=== PATIENT | female | born 1945 | race Caucasian/White ===

== ENCOUNTER 2016-07-13 10:52 | Inpatient (IN) | payer MEDICARE, BC ==
--- NOTE | ~2016-07-13 | EKG ---
PATIENT: MARLI LOWE UNIT #: [id number] Ventricular Rate: 92 BPM Atrial Rate: 92 BPM P-R Interval: 168 ms QRS Duration: 80 ms Q-T Interval: 332 ms QTC Calculation(Bezet): 410 ms P [place]: 50 degrees Calculated R [place]: 71 degrees Calculated T [place]: 49 degrees Diagnosis Line: Normal sinus rhythm Diagnosis Line: Normal ECG Diagnosis Line: When compared with ECG of 16-JUL-2016 06:00, Diagnosis Line: No significant change was found Diagnosis Line: Confirmed by BRENDA LANE MD ([id number]) on Diagnosis Line: 07/24/2016 9:48:05 AM INTERPRETING MILLER ANDERSON
--- NOTE | ~2016-07-13 | CR63 ---
[facility] A Service of [facility] & [facility] RADIOLOGY TEXT RESULTS PATIENT: MARLI LOWE LOCATION: [facility] 46- : 43 UNIT #: [id number] AGE: [address]: Ezra Mckenzie MD SEX: F ORDER DR: [id number] [facility] [address] [place], [place] [address] [id number] I MR#: [id number] Acc #: [id number] NAME: MARLI LOWE. : 1945 SEX: F STUDY DATE/TIME: 07/22/2016 9:51 UNIT: [facility] ROOM: [facility] STUDY DESCRIPTION: CR Chest 2 View Attending Physician: Ezra Mckenzie M.D. Ordering Physician: Ezra Mckenzie M.D. Primary Care Physician: Jasper Andrew M.D. MEDICAL IMAGING REPORT This report is preliminary unless electronic signature is present EXAM Two view chest x-ray HISTORY Shortness of breath accompanied by abdominal pain for the past week. TECHNIQUE Two views of the chest were obtained compared with 07/13/2016 FINDINGS Mild cardiomegaly is again seen and unchanged. No progressive mediastinal widening is seen since the previous examination. Both lungs are clear with normal vascular markings. No pleural fluid is seen. IMPRESSION No active disease. No new infiltrates are seen since the previous exam. Dictated by... Ezra Kasper M.D. THIS IS AN ELECTRONICALLY VERIFIED REPORT Ezra Kasper M.D. at 07/22/2016 4:33 PM MARCOS/daniel TD: 07/22/2016 13:25 JOB #: [id number] MEDICAL IMAGING REPORT Page 1 of 1 COPY
--- NOTE | ~2016-07-13 | ST ---
Unit #: [id number] #: [id number] Patient: MARLI LOWE [id number] [address] [place], [place] [address] [id number] I MR#: [id number] NAME: MARLI LOWE : 1945 SEX: F STUDY DATE/TIME: 07/14/2016 UNIT: [facility] ROOM: 461 STUDY DESCRIPTION: Attending Physician: Ezra Mckenzie M.D. Primary Care Physician: Jasper Andrew M.D. CARDIOLOGY REPORT EXAM Dobutamine Cardiolite Stress Test. FINDINGS Baseline EKG shows normal sinus rhythm with a rate of 63 beats per minute, otherwise normal. PROCEDURE Dobutamine was infused at a rate of 10 mcg/kg/min up to 20 mg/kg/min with a total infusion of 6 mL. The patient had no complaints of chest pain but complained of palpitations. EKG during dobutamine found her to have no ST-T wave abnormalities, was noted for a rare premature ventricular complex. Maximum blood pressure response was 136/82 mmHg. At the end of recovery, blood pressure 113/67 mmHg. Please correlate these results with nuclear images. Dictated by... Familia Husani A.P.R.N. for Jodi Biggs TD: 07/14/2016 14:30 JOB #: [id number] CARDIOLOGY REPORT Page 1 of 1 X Familia Husain APRN CARDIOLOGY REPORT
--- NOTE | ~2016-07-13 | OR ---
Unit #: [id number] #: [id number] Patient: MARLI SHANE [id number] [address] [address] [id number] I MR#: [id number] NAME: MARLI SHANE ROOM: 461 Date of Procedure: 07/15/2016 Admission Date: 07/13/2016 Surgeon: Ezra Mckenzie M.D. : 1945 Attending Physician: Ezra Mckenzie M.D. Primary Care Physician: Jasper Andrew M.D. OPERATIVE REPORT PREOPERATIVE DIAGNOSIS Ascending colon cancer. POSTOPERATIVE DIAGNOSIS Ascending colon cancer. PROCEDURES PERFORMED Exploratory laparotomy, right hemicolectomy. PERFORMANCE ENGINEER Marleni. ANESTHESIA General endotracheal anesthesia. ESTIMATED BLOOD LOSS Less than 50 mL. INDICATIONS FOR PROCEDURE Ms. Shane is a 70-year-old female, who was complaining of some right upper quadrant abdominal pain and was noted to have iron deficiency anemia. On endoscopic evaluation, she was found to have a circumferential near obstructing colon cancer near the hepatic flexure. The lesion was biopsied and tattooed. DESCRIPTION OF PROCEDURE The patient was transported from her hospital room to the operating room, and after induction of general endotracheal anesthesia, she received IV antibiotics per SCIP protocol. Garrison catheter and orogastric tube were placed. SCDs were already in place and in preoperative hold, she had received Entereg. After being prepped and draped in usual sterile fashion, midline incision was made. We dissected down through the soft tissue and entered the abdomen through the linea alba. Once the incision had been opened and we entered the peritoneal cavity, I identified the mass in the distal ascending colon. The right colon was mobilized along the right colic gutter and the hepatic flexure was mobilized. The duodenum was identified and preserved. I then divided the terminal ilium using a LEDA stapler and then divided the proximal transverse colon with a LEDA stapler. The omentum was dissected off the colon and then the mesenteric drainage of the right colon was clamped, divided, and ligated. The specimen was sent to laboratory for permanent section. There was excellent hemostasis. A functional end-to-end [id number] stapled Unit #: [id number] #: [id number] Patient: MARLI SHANE anastomosis was performed. The open end was closed with a TA 60 stapler and all staple lines were oversewn with 3-0 silk inverting sutures. The mesenteric defect was closed with 3-0 silk suture. Sponges and needle counts were correct x3. There was good hemostasis. The bowel was placed back in the anatomic position and omentum was pulled over the anastomosis. Dictated by... Jodi Shanks/rosa TD: 07/16/2016 02:12 JOB #: [id number] OPERATIVE REPORT Page 1 of 1 X Ezra Mckenzie MD X PROCEDURE OPERATIVE NOTE
--- NOTE | ~2016-07-13 | A ---
[facility] Nutrition Therapy DATE: 07/23/16 Patient: MARLI LOWE Physician: STEROB Address: [address] [facility] [address] Room/Bed: [address] [place] [address], Zip: [place] [address] Admit Date: 07/13/16 Date of : 43 Height: 5 4 Weight: 200 91 NUTRITIONAL ASSESSMENT: REASON: LOS ASSESSMENT PT IS 70 Y.O. FEMALE ADMITTED FOR ABDOMINAL EPIGASTRIC PAIN, CATHERINE PMH: METASTATIC COLON CA, HTN, HLD, ASTHMA, KWAME, HYPOTHYROIDISM, HX OF CHOLY Anthropometrics: 5'5", WT: 200# (91 KG), BMI: 33.3 Labs: GLU: 121, NA+:133, CA+:8.1 Meds: FERROUS GLUCONATE, NACL, H-CHLOR 12, ZOFRAN I/O & Bowel function: 1840/1305, 4 BMs NOTED Skin Integrity: INCISIONAL WOUND NOTED EDEMA: BLE TRACE EDEMA; ABD GENERAL EDEMA Assessment: CHART REVIEWED AND EVENTS NOTED. PT SEEN FOR LENGTH OF STAY ASSESSMENT (10 DAYS). PT REPORTS GOOD PO INTAKE AND APPETITE, NO C/O N/V/D. PT REPORTS (R) UPPER QUADRANT PAIN A FEW DAYS AGO. OF NOTE, PT IS S/P (R) HEMICOLECTOMY. PT DENIES ANY RECENT WEIGHT LOSS. RD ENCOURAGED ADEQUATE PROTEIN AND VITAMINS/MINERALS FOR WOUND HEALING WELL ADDING HEALTHY CHOICES TO DAILY MEAL PATTERN, PT AGREED. PT REPORTED NO DIET QUESTIONS AT THIS TIME. RD TO REMAIN AVAILABLE. Dx: INCREASED PROTEIN NEEDS R/T WOUND AEB INCISIONAL WOUND NOTED. Intervention: 1. REGULAR DIET Monitoring, Evaluation and Goals: 1. ORAL INTAKE; CONSUME >50% OF MEALS W/NO C/O N/V/D 2. WEIGHTS; PROMOTE GRADUAL WEIGHT LOSS TOWARDS HEALTHY BMI 3. LABS; WNL 4. SKIN; PROMOTE SKIN HEALING 5. GI; PROMOTE REGULAR GI FUNCTION MONITOR: -PO INTAKE/APPETITE -WEIGHTS -LABS [facility] Nutrition Therapy DATE: 07/23/16 Patient: MARLI LOWE Physician: STEROB Address: [address] [facility] [address] Room/Bed: [address] [place] [address], Zip: [place] [address] Admit Date: 05/23/17 Date of : 43 Height: 5 4 Weight: 200 91 Recommendations: 1. RECOMMEND TO CHANGE CURRENT DIET ORDER TO HEALTHY HEART 2' HIGH BMI NOTED, PMH 2. ENCOURAGE PROTEIN SOURCES 3. CONSIDER ADDING MVI W/MINERAL DAILY TO PT'S CURRENT MEDICATION REGIMEN TO PROMOTE SKIN HEALING RD WILL F/U PER PROTOCOL PT IS MILDLY COMPROMISED Respectfully, INDERJIT CURTIS MS, RD, LD Food and Nutritional Services [facility] cc: client file
--- NOTE | ~2016-07-13 | CO ---
Unit #: [id number] #: [id number] Patient: MARLI SHANE [id number] [address] [place], [place] [address] [id number] I MR#: [id number] NAME: MARLI SHANE ROOM: 461 Age: 70 Sex: F Admission Date: 07/13/2016 : 1945 Attending Physician: Ezra Mckenzie M.D. Primary Care Physician: Jasper Andrew M.D. Consultation Date: 07/21/2016 CONSULTATION REPORT REASON FOR CONSULT Acute kidney injury. HISTORY OF PRESENT ILLNESS Ms. Shane is a very pleasant 70-year-old white female who underwent a right hemicolectomy for colon cancer on July 15 whom we were asked to see because of postop acute kidney injury. I do note that patient did receive a contrasted CT scan near the time of admission, but this does not look to be playing a role in her acute kidney injury today on the 21 of July. She also received some postop Toradol, but again, that was several days ago, and I do not believe that was playing a role in her acute kidney injury. I do note that her creatinine started to rise shortly after her Garrison catheter was removed. She has also had some postop hypotension with several blood pressure readings over the last few days in the 90s while on Avapro. She reports feeling poorly yesterday with poor appetite and some nausea. She has had some postop wound issues and her karlos removed, and she does have some dehiscence and packing. She is on Levaquin for that. Patient does have asthma and obstructive sleep apnea but denies any chest discomfort or shortness of breath. She reports urinating with no dysuria or gross hematuria. No headache or dizziness at this time. PAST MEDICAL HISTORY 1. Hypertension. 2. Hyperlipidemia. 3. Asthma. 4. Obstructive sleep apnea. 5. Hypothyroidism. 6. Obesity. PAST SURGICAL HISTORY 1. Tonsillectomy. 2. Cholecystectomy. 3. Hysterectomy. 4. Left knee replacement. 5. Right hemicolectomy. CURRENT MEDICATIONS 1. Dulera inhaler. 2. Primidone 100 mg at bedtime. 3. Singulair 10 mg daily. 4. Avapro 300 mg daily. 5. Lovenox 40 mg subcutaneous daily. 6. Lasix 10 mg IV every morning was stopped. 7. Levaquin 500 mg IV daily. Unit #: [id number] #: [id number] Patient: MALRI SHANE 8. P.r.n.s, mostly pain medicine. ALLERGIES No known drug allergies but does have a shellfish issue. FAMILY HISTORY Congestive heart failure and coronary artery disease but no family history of kidney disease or dialysis. SOCIAL HISTORY Patient is . She is a lifelong nonsmoker. No alcohol or drug abuse. REVIEW OF SYSTEMS A complete 12-point review of systems was completed with the above findings. In addition, she has had some low-grade fevers but no chills, no nosebleed, sore throat, or earache, no chest pain or palpitations, no cough or hemoptysis, and no hematemesis. She has had some loose stools that are nonbloody. No gross hematuria, no swelling issues, no rashes or pruritus, no flank pain, no night sweats or hot flashes, no intolerance to heat or cold, no gross bleeding issues, no significant weight changes preadmission, and no anxiety or depression. Unless otherwise indicated, the review of systems was negative. PHYSICAL EXAMINATION VITAL SIGNS: T-max was 100, pulse 86, respiratory rate 18, and blood pressure 151/97. I do see a low blood pressure yesterday at 98/50 and 98/68. I/Os: Urine output was recorded at 650 mL. GENERAL: This is a pleasant 70-year-old female sitting in a chair who is alert, answers questions appropriately, and is in no acute distress. HEENT: Head is atraumatic and normocephalic. Eyes show pale conjunctivae but no scleral icterus. No nasal drainage or nosebleed. Oropharynx is slightly dry. No thrush. He does have a narrow posterior pharyngeal airway. NECK: Thick with no JVD. HEART: Regular rate and rhythm with no significant murmur, gallop, or rub appreciated. LUNGS: Slightly diminished with breath sounds, but there is no wheezing or rhonchi. Breathing is nonlabored. ABDOMEN: Obese and soft postop with wound dressed. EXTREMITIES: No lower extremity clubbing, cyanosis, or pitting edema. SKIN: Dry without rashes. MUSCULOSKELETAL: No CVA tenderness to palpation. No joint effusions noted. NEUROLOGIC: Cranial nerves are grossly intact with no gross motor deficits. LYMPHATICS: No neck cervical lymphadenopathy. PSYCHIATRIC: Mood and affect appear normal. DIAGNOSTIC STUDIES LABORATORY: Sodium today 131, potassium 4, chloride 104, and bicarb 20 for an anion gap of 7, glucose 113, BUN 23, creatinine up to 2, and magnesium 1.7. CBC with white count 14, hemoglobin 7.2, and platelet count 316,000. Urine culture from the was negative. Creatinine yesterday was 1.1 and prior to that on the was 0.7. Urinalysis on the was nitrite positive with white blood cells and red blood cells, but there were moderate squamous cells at that time. Unit #: [id number] #: [id number] Patient: MARLI SHANE IMAGING: Chest x-ray from the showed some atelectasis but no pleural effusions. CT of the abdomen and pelvis with contrast on the did show bilateral cysts, one in each kidney. No hydronephrosis. ASSESSMENT AND PLAN 1. Acute kidney injury. Again, creatinine looks to have started to rise after July 18 when it went from 0.7, then to 1.1, and now up to 2. Again, she did receive some contrast on the day of admission and did receive some postop Toradol, but these do not appear to be playing a role in her acute kidney injury as the timing is not consistent. Her creatinine again did seem to rise steadily after her catheter was removed on the , so we do need to rule out obstruction and urinary retention with a bladder scan. We will replace Garrison if needed. She also could be prerenal with her Avapro on board with low blood pressure. We will stop her Avapro and gently hydrate. We will start her on some sodium bicarbonate and monitor kidney function daily. 2. Metabolic acidosis, nonanion-gap in nature. This may be related to her loose stools, and I will add some sodium bicarbonate supplementation. 3. Hypotension. We will hold her Avapro and gently hydrate. 4. Hyponatremia. This is likely related to her renal insufficiency, and we will use normal saline as replacement fluid. 5. Anemia. This is postoperative in nature, and she may need a transfusion if she continues to drop. 6. Obstructive sleep apnea with asthma, on CPAP. 7. History of colon cancer, status post resection, now with wound infection, on Levaquin, being followed by Surgery. I would like to thank Dr. Mckenzie for this consult and the opportunity to participate in evaluation and care of Ms. Shane. Dictated by... Ned Stephens Jr., M.D. SJK/angelic TD: 07/21/2016 14:54 JOB #: [id number] CONSULTATION REPORT Page 1 of 1 X Ned Stephens MD X CONSULTATION REPORT
--- NOTE | ~2016-07-13 | TH ---
Unit #: [id number] #: [id number] Patient: MARLI LOWE [id number] [address] [address] [id number] I MR#: [id number] NAME: MARLI LOWE. : 1945 SEX: F STUDY DATE/TIME: 07/14/2016 UNIT: [facility] ROOM: 461 STUDY DESCRIPTION: Dobutamine stress - Nuclear Attending Physician: Ezra Mckenzie M.D. Primary Care Physician: Jasper Andrew M.D. CARDIOLOGY REPORT PROCEDURE PERFORMED Dobutamine Cardiolite stress test - Nuclear portion. PROCEDURE Using technetium 99m-labeled Cardiolite, rest and stress SPECT images were obtained. Multiple SPECT images were obtained in various views, including horizontal and vertical long axis and short axis views of the left ventricle. Images were obtained by gated SPECT method. The patient was administered 10.5 mCi of Cardiolite at rest. The patient was administered 31.7 mCi of Cardiolite at peak dobutamine infusion. On the stress images, there is normal perfusion noted. The rest images show normal perfusion. Comparing the rest and stress images, there is no stress-induced ischemia noted. The left ventricular ejection fraction is calculated to be 78%. There is no focal wall motion abnormality seen. CONCLUSION 1. No stress-induced ischemia noted. 2. The left ventricular ejection fraction is calculated to be 78%. 3. There is no focal wall motion abnormality seen. 4. Normal dobutamine Cardiolite stress test. 5. Technically limited study due to patient's body habitus. Clinical correlation is requested. Dictated by... Jodi Biggs TD: 07/14/2016 15:02 JOB #: [id number] Unit #: [id number] #: [id number] Patient: MARLI LOWE CARDIOLOGY REPORT Page 1 of 1 X Maxine Lock MD <ELECTRONICALLY SIGNED> 09/11/16 1426 CARDIOLOGY REPORT
--- NOTE | ~2016-07-13 | CT2 ---
[facility] A Service of [facility] & [facility] RADIOLOGY TEXT RESULTS PATIENT: MARLI LOWE LOCATION: [facility] : 43 UNIT #: [id number] AGE: [address]: Ezra Mckenzie MD SEX: F ORDER DR: [id number] [facility] [address] [facility]. [place], [place] [address] [id number] I MR#: [id number] Acc #: [id number] NAME: MARLI LOWE. : 1945 SEX: F STUDY DATE/TIME: 07/13/2016 19:14 [facility] ROOM: STUDY DESCRIPTION: CT Abd and Pelv W Cont Attending Physician: Ezra Mckenzie M.D. Ordering Physician: Ezra Mckenzie M.D. Primary Care Physician: Jasper Andrew M.D. MEDICAL IMAGING REPORT This report is preliminary unless electronic signature is present EXAM CT abdomen and pelvis. INDICATION Epigastric abdominal pain for 1 month. New diagnosis of colon cancer. TECHNIQUE CT of abdomen and pelvis with p.o. and IV contrast. Coronal and sagittal reconstructions were obtained. This CT exam was performed with one or more of the following radiation dose reduction techniques: automatic exposure control, adjustment of mA and/or kV according to patient size, and iterative reconstruction. COMPARISON None available. FINDINGS ABDOMEN: There is minimal linear scarring or atelectasis in both lung bases. The liver, pancreas, spleen, and adrenal glands are within normal limits. There is a benign cyst in the superior pole left kidney measuring up to 7.4 cm. Small low-attenuation lesion in the mid-right kidney measures 1.5 cm is also likely a cyst. No hydronephrosis. The bowel is not dilated. No enlarged retroperitoneal or mesenteric lymph nodes. The appendix is normal. There is moderate sigmoid colon diverticulosis. No diverticulitis. Patient has reported history of a primary colonic malignancy, however, no discrete evidence of a mass is seen on the CT scan. There is a possible lesion in the ascending colon near the hepatic flexure measuring up to 3.6 cm in length. Please confirm with colonoscopy history. The bowel wall measures approximately 1 cm in thickness in this area. There is minimal stranding in the pericolonic fat, however, no pathologically enlarged lymph nodes. [facility] A Service of [facility] RADIOLOGY TEXT RESULTS PATIENT: MARLI LOWE LOCATION: [facility] [address]-5 : 43 UNIT #: [id number] AGE: [address]: Ezra Mckenzie MD SEX: F ORDER DR: There is a small umbilical hernia. PELVIS: The bladder is decompressed. The uterus and ovaries are presumed surgically absent. There is pelvic floor insufficiency with descent of the middle and posterior pelvic floor compartments below the pubococcygeal line. There is a prominent peritoneocele. No acute osseous abnormalities. IMPRESSION 1. Short segment of mild wall thickening in the ascending colon near the hepatic flexure. The patient has reported history of primary colon neoplasm. This lesion likely represents the patient's known malignancy. Please confirm with endoscopy reports. 2. No evidence of metastatic disease in the abdomen or pelvis. 3. Left-sided colonic diverticulosis. Dictated by... Fab Trinidad M.D. THIS IS AN ELECTRONICALLY VERIFIED REPORT Fab Trinidad M.D. at 07/14/2016 2:21 AM Ignacia TD: 07/14/2016 00:34 JOB #: [id number] MEDICAL IMAGING REPORT Page 1 of 1 COPY
--- NOTE | ~2016-07-13 | EKG ---
PATIENT: MARLI LOWE UNIT #: [id number] Ventricular Rate: 60 BPM Atrial Rate: 60 BPM P-R Interval: 182 ms QRS Duration: 80 ms Q-T Interval: 438 ms QTC Calculation(Bezet): 438 ms P [place]: 56 degrees Calculated R [place]: 70 degrees Calculated T [place]: 72 degrees Diagnosis Line: Normal sinus rhythm Diagnosis Line: Normal ECG Diagnosis Line: No previous ECGs available Diagnosis Line: Confirmed by MATTHEW OBRIEN MD ([id number]) on Diagnosis Line: 07/15/2016 1:13:23 PM INTERPRETING MD: KENJI
--- NOTE | ~2016-07-13 | OR ---
Unit #: [id number] #: [id number] Patient: MARLI SHANE [id number] [facility] [address] [facility]. [place], [place] [address] [id number] I MR#: [id number] NAME: MARLI SHANE ROOM: Date of Procedure: 07/13/2016 Admission Date: 07/13/2016 Surgeon: Ezra Mckenzie M.D. : 1945 Attending Physician: Ezra Mckenzie M.D. Primary Care Physician: Jasper Andrew M.D. OPERATIVE REPORT PRIMARY CARE PHYSICIAN Jasper Andrew M.D. PREOPERATIVE DIAGNOSES Abdominal pain and anemia. POSTOPERATIVE DIAGNOSES Normal upper endoscopy, sigmoid diverticulosis, near obstructing mass at the hepatic flexure consistent with malignancy. PROCEDURES PERFORMED Esophagogastroduodenoscopy to third portion of the duodenum and colonoscopy to the hepatic flexure with biopsy x2. ANESTHESIA Monitored anesthesia. INDICATIONS FOR PROCEDURE Ms. Shane is a 70-year-old female with a family history of colon cancer and multiple medical problems. She has been complaining of some abdominal pain in the epigastrium and right upper quadrant. It is exacerbated by eating and she has also been complaining of more difficulty moving her bowels. Physical examination was unremarkable. DESCRIPTION OF PROCEDURE The patient was admitted to [facility], positively identified, and transported to the endoscopy unit and after appropriate monitoring and positioning, a bite block was placed. She was appropriately positioned and sedated. Endoscope was passed through the oral cavity into the esophagus. Under direct vision, we passed through the esophagus into the stomach, insufflated the stomach, and passed through the pylorus down to the second and third portions of the duodenum. The entire upper GI tract was evaluated and was found to have no significant abnormalities. The scope was normal to examination. After completion of the upper scope, the patient was repositioned. On rectal examination, there was no local anorectal pathology. Digital examination was unremarkable. The scope was passed through the colon to the hepatic flexure, where at the hepatic flexure, she was found to have a mass that was near obstructing. Biopsy x2 was taken. It was consistent with malignancy. The area was tattooed for identification of surgery. On antegrade and retrograde visualization, diverticulosis was identified in the sigmoid colon, but there was no evidence of diverticulitis or any Unit #: [id number] #: [id number] Patient: MARLI SHANE recent bleeding. In the rectal vault, there was no internal hemorrhoidal disease. The patient tolerated the procedure well and transported to Recovery in stable condition. Findings were discussed with the patient and her family. She will be admitted to the hospital for further evaluation and surgical treatment of her disease as appropriate. Dictated by... Jodi Shanks/rosa TD: 07/14/2016 00:08 JOB #: [id number] OPERATIVE REPORT Page 1 of 1 X Ezra Mckenzie MD X PROCEDURE OPERATIVE NOTE
--- NOTE | ~2016-07-13 | EKG ---
PATIENT: MARLI LOWE UNIT #: [id number] Ventricular Rate: 65 BPM Atrial Rate: 65 BPM P-R Interval: 174 ms QRS Duration: 88 ms Q-T Interval: 412 ms QTC Calculation(Bezet): 428 ms P [place]: 41 degrees Calculated R [place]: 46 degrees Calculated T [place]: 50 degrees Diagnosis Line: Normal sinus rhythm Diagnosis Line: Normal ECG Diagnosis Line: When compared with ECG of 13-JUL-2016 17:01, Diagnosis Line: (unconfirmed) Diagnosis Line: No significant change was found Diagnosis Line: Confirmed by HUNTER MARIN MD ([id number]) on 07/15/2016 Diagnosis Line: 6:01:57 PM INTERPRETING MD: TOMAS LUI
--- NOTE | ~2016-07-13 | DS ---
Unit #: [id number] #: [id number] Patient: MARLI LOWE [id number] [address] [address] [id number] I MR#: [id number] NAME: MARLI LOWE ROOM: 46 Age: 70 Sex: F Admission Date: 07/13/2016 : 1945 Discharge Date: 07/26/2016 Attending Physician: Ezra Mckenzie M.D. Primary Care Physician: Jasper Andrew M.D. DISCHARGE SUMMARY REVISED REPORT ADMITTING PHYSICIAN Dr. Ezra Mckenzie. CONSULTATIONS 1. Dr. Karl Gallegos. 2. Cardiology with Dr. Lee. 3. Dr. Renzo Gracia. 4. Nephrology with Dr. Ned Stephens. PROCEDURES PERFORMED 1. On July 13, 2016, she underwent colonoscopy. 2. On July 15, 2016, she underwent right hemicolectomy. ADMITTING DIAGNOSES 1. Abdominal pain. 2. Anemia. DISCHARGE DIAGNOSIS She had a colon cancer at the hepatic flexure. SECONDARY DIAGNOSES 1. Sleep apnea. 2. Asthma. 3. Coronary artery disease. 4. Acute kidney injury. BRIEF HOSPITAL COURSE This is a 70-year-old lady, who was admitted for workup of abdominal pain and anemia. She was found to have a near obstructing colon cancer at the hepatic flexure. She underwent cardiac clearance and then underwent a right hemicolectomy. Postoperatively, she had issues with acute kidney injury, so nephrology was consulted. She did not require any dialysis. Workup included evaluation for metabolic acidosis and hyponatremia. Her kidneys ultimately responded. She was also given iron transfusions during her hospitalization for her anemia. She then developed a wound infection and part of her wound was opened up and dressing changes were begun. She was overall fairly weak and needed rehab. DISPOSITION Discharge to Rehab. Unit #: [id number] #: [id number] Patient: MARLI LOWE DISCHARGE INSTRUCTIONS Prior to discharge, she was tolerating a regular diet. She was having good GI function. She is to continue her wet-to-dry dressing changes every eight hours. She is to follow up with Dr. Mcknezie in 10-14 days and followup with Dr. Gracia in two to three weeks. We have also recommended to discontinue her remaining karlos on July 29. Dictated by... Raul Alicea III, M.D. VCL/ch TD: 07/26/2016 10:14 JOB #: [id number] DISCHARGE SUMMARY Page 1 of 1 X Raul Alicea III, MD X DISCHARGE SUMMARY
--- NOTE | ~2016-07-13 | EKG ---
PATIENT: MARLI LOWE UNIT #: [id number] Ventricular Rate: 73 BPM Atrial Rate: 73 BPM P-R Interval: 168 ms QRS Duration: 80 ms Q-T Interval: 396 ms QTC Calculation(Bezet): 436 ms P [place]: 53 degrees Calculated R [place]: 64 degrees Calculated T [place]: 57 degrees Diagnosis Line: Normal sinus rhythm Diagnosis Line: Normal ECG Diagnosis Line: When compared with ECG of 14-JUL-2016 14:46, Diagnosis Line: No significant change was found Diagnosis Line: Confirmed by BRENDA LANE MD ([id number]) on Diagnosis Line: 07/20/2016 5:13:07 PM INTERPRETING : JUSTIN
--- NOTE | ~2016-07-13 | CR63 ---
[facility] A Service of [facility] RADIOLOGY TEXT RESULTS PATIENT: MARLI LOWE LOCATION: [facility] : 43 UNIT #: [id number] AGE: [address]: Ezra Mckenzie MD SEX: F ORDER DR: [id number] [facility] [address] [facility] [place], [place] [address] [id number] I MR#: [id number] Acc #: [id number] NAME: MARLI LOWE. : 1945 SEX: F STUDY DATE/TIME: 07/13/2016 19:28 UNIT: [id number] ROOM: STUDY DESCRIPTION: CR Chest 2 View Attending Physician: Ezra Mckenzie M.D. Ordering Physician: Ezra Mckenzie M.D. Primary Care Physician: Jasper Andrew M.D. MEDICAL IMAGING REPORT This report is preliminary unless electronic signature is present EXAM 2 views chest HISTORY Postop, endo cancer screening today, colon cancer today, gallbladder removed. FINDINGS AP and lateral radiographs of the chest are presented. Study is significantly limited by the patient's large body habitus, radiographic technique, and patient positioning. There is mild cardiac enlargement. There are patchy and linear densities in the left lower lung zone with partial obscuration of the left heart border suggesting inferior lingular segment location. These may represent a combination of atelectasis and mild pneumonitis. There is no dense airspace disease. No pleural effusion or pneumothorax. No suspicious nodule. Healed granulomatous disease. The bony structures show degenerative changes in spine but no acute-appearing abnormality. Dictated by... López Mathew M.D. THIS IS AN ELECTRONICALLY VERIFIED REPORT López Mathew M.D. at 07/14/2016 10:27 PM LIZZETH/amadou TD: 07/14/2016 01:34 JOB #: [id number] MEDICAL IMAGING REPORT Page 1 of 1 COPY
--- NOTE | ~2016-07-13 | CO ---
Unit #: [id number] #: [id number] Patient: MARLI LOWE [id number] [address] [place], [place] [address] [id number] I MR#: [id number] NAME: MARLI LOWE ROOM: 461 Age: 70 Sex: F Admission Date: 07/13/2016 : 1945 Attending Physician: Ezra Mckenzie M.D. Primary Care Physician: Jasper Andrew M.D. Consultation Date: 07/20/2016 CONSULTATION REPORT REASON FOR EVAL Colon cancer; please evaluate. HISTORY OF PRESENT ILLNESS A 70-year-old lady who has a history of father dying of metastatic colon cancer. Had colonoscopy 10 years ago, followed by about 5 years ago. Now presented with a lesion. It was resected, and it appears to be a T3, N0, Mx, stage IIA colon cancer. We were requested to evaluate. PAST MEDICAL HISTORY Her past history is negative for other cancers. Positive for sleep apnea and asthma. ALLERGIES No known allergies. CHRONIC MEDICATIONS Primidone, Singulair, potassium, Lasix, Lipitor, Zoloft, Avapro, Protonix, multivitamin. FAMILY HISTORY Positive for colon cancer in her father who from the colon cancer, metastatic, but she does not know of any other colon cancer in the family. SOCIAL HISTORY She is a reformed smoker. No alcohol usage. Currently retired. Has a supportive son. REVIEW OF SYSTEMS Shortness of breath on lying down. Periodic shortness of breath on exertion. Otherwise, 8 to 10 systems were within normal limits. PHYSICAL EXAM GENERAL: Central obesity. LYMPHATICS: No palpable nodes. SKIN: Moderate pallor. LUNGS: Crackles. Mild wheeze. CARDIOVASCULAR: Distant S1, S2. ABDOMEN: Evidence of recent surgery. MANAGING JEWELER: Grossly intact. PELVIC EXAM: Not performed. BREAST EXAM: Not performed. DIAGNOSTIC STUDIES Unit #: [id number] #: [id number] Patient: MARLI LOWE LABORATORY: Chemistries - Glucose 103, BUN 9, creatinine 1.1, sodium 133, potassium 3.6, chloride 105, CO2 21, calcium 8.1. CEA of 1.2. Ferritin is 5, saturation is 2% with a serum iron of 10. Hemoglobin 8.3, hematocrit 28, MCV 68.4, white count 15.5, platelets 290,000. IMAGING: CT scan of the abdomen and pelvis done on July 13 showed no evidence of metastatic disease. Short segment of mild wall thickening of ascending colon, and this was prior to the surgery. There was evidence of left-sided diverticulosis. Chest x-ray - No evidence of metastatic disease. IMPRESSION At this point the pathology was brought up, reviewed, and the results were discussed with the patient. Moderately differentiated, 5.3 cm, low-grade adenocarcinoma. All the margins were clear. Twenty-one lymph nodes were negative, so it is basically a T3, N0, Mx stage IIA colon cancer. Recuperating well. PLAN At this point I had a long discussion with her regarding adjuvant chemotherapy in her case is not indicated with stage IIA disease as the benefit is there, but it is very small comparing the toxicity of the drug trial. Only clinical trials are allowed for IIA disease. Also, she has fairly severe iron deficiency anemia, and we will try ferrous sulfate orally for a month or 2, see if she absorbs enough iron by checking a ferritin level as an outpatient. In case there is difficulty in absorbing iron, we will treat her with intravenous at that point. Also, with stage IIA, the NCCN guidelines suggest CT scan of the abdomen and pelvis once a year for 3 years. She already had the CT scan this year. She will not qualify for a PET scan but will check with Medicare allowance and, as she has severe fear of metastatic colon cancer, if Medicare allows, will proceed with a PET scan as a baseline and schedule outpatient followup. Dictated by... Jodi Kim/herb TD: 07/21/2016 12:37 JOB #: [id number] CONSULTATION REPORT Page 1 of 1 X Renzo Gracia MD X CONSULTATION REPORT
--- NOTE | ~2016-07-13 | CO ---
Unit #: [id number] #: [id number] Patient: MARLI LOWE [id number] [address] [place], [place] [address] [id number] I MR#: [id number] NAME: MARLI LOWE. ROOM: 461 Age: 70 Sex: F Admission Date: 07/13/2016 : 1945 Attending Physician: Ezra Mckenzie M.D. Primary Care Physician: Jasper Andrew M.D. Consultation Date: 07/14/2016 CONSULTATION REPORT REASON FOR CONSULTATION Preoperative evaluation prior to surgery for suspected colon cancer. HISTORY OF PRESENT ILLNESS This 70-year-old female with a history of asthma and sleep apnea, compliant with CPAP, had abdominal discomfort. Despite treatment for diverticulitis it continued. Evaluation included endoscopy on 07/13/2016 which revealed evidence of a colon cancer. Pathology is pending. She is undergoing cardiac workup for anticipated surgery tomorrow. She states her pulmonary status is stable. No wheezing, sputum production, chest congestion. She uses Breo at home and that controls her symptoms. She uses CPAP nightly without difficulty. PAST MEDICAL HISTORY Remarkable for: 1. Asthma. 2. Obstructive sleep apnea. 3. Stress test in the past that was negative. HOME MEDICATIONS 1. Breo. 2. Albuterol as needed. 3. CPAP. MEDICATIONS IN HOSPITAL Include: 1. Protonix. 2. Multivitamins. 3. Primidone. 4. Singulair. 5. Lasix. 6. Potassium. 7. Lipitor. 8. Zoloft. 9. Avapro. ALLERGIES No known medical allergies. SOCIAL HISTORY She is a reformed tobacco user. FAMILY HISTORY Colon cancer. Unit #: [id number] #: [id number] Patient: MARLI LOWE REVIEW OF SYSTEMS Fairly unremarkable. She denies fever, chills, weight loss, abdominal pain, melena, hematochezia, hematuria, dysuria, focal weakness, paresthesias. She is very independent. She lives alone. Walks without difficulty. Further review of systems negative. PHYSICAL EXAMINATION VITAL SIGNS: I do not see a temperature but blood pressure was 160/78, pulse is 70, respiratory rate 18 and unlabored, BMI 48. GENERAL: Reveals a pleasant lady, walking around the room without difficulty. HEENT: Pupils are equal, round, and reactive to light. Sclerae anicteric. Head atraumatic. Mucous membranes moist. NECK: Supple. No supraclavicular or cervical adenopathy appreciated. She does have some full supraclavicular fossas consistent with pulmonary hyperinflation. I do not appreciate any adenopathy. LUNGS: Clear. No wheeze, stridor or consolidation. No accessory muscle use. HEART: Regular rate and rhythm. No pathologic murmur, rub or gallop. ABDOMEN: Obese, soft, nontender. EXTREMITIES: No clubbing, cyanosis or edema. No calf tenderness. SCD stockings are in place. NEUROLOGIC: No focal muscle or sensory deficits noted. DIAGNOSTIC STUDIES LABORATORY: BUN 9, creatinine 0.7. Iron studies are low. Hemoglobin 8.6, white blood cell count 5.3, platelet count 277. IMAGING: Chest x-ray old granulomatous disease right hilum. There is a small granuloma right upper lobe. Possibly some mild atelectasis in her lingula. CT scan of the abdomen, lower lung cuts were reviewed. Confirms the minimal atelectasis of her lingula. No pneumonia, no tumor, no fibrosis. Lower lung cuts fairly unremarkable. CARDIOVASCULAR: She is undergoing evaluation cardiac-bernstein with those tests pending. IMPRESSION 1. Likely colon cancer, tentative surgery tomorrow. 2. Asthma which is stable. 3. Obstructive sleep apnea, compliant. 4. Remote history of abnormal PFTs but with stability and, quite frankly improvement on Breo, doubt any undiscovered lung disease. PLAN 1. Continue treatment for asthma. 2. Continue CPAP. 3. I have asked her to ask her family to bring in her CPAP to use at night with sleep and postoperatively. 4. We have discussed the risk of pulmonary complications given her obesity including hypoxemia. We also discussed how sleep apnea can be worsened with pain medications, anesthesia, etc. 5. From a pulmonary point of view, it is okay to proceed with surgery. Thank you very much for allowing me to participate in the care of Ms. Unit #: [id number] #: [id number] Patient: MARLI LOWE. Dictated by... Ramsey Gallegso M.D. COLT/niurka TD: 07/14/2016 16:23 JOB #: [id number] CONSULTATION REPORT Page 1 of 1 X Ramsey Gallegos MD CONSULTATION REPORT
--- NOTE | ~2016-07-13 | HP ---
Unit #: [id number] #: [id number] Patient: MARLI LOWE [id number] [address] [place], [place] [address] [id number] I MR#: [id number] NAME: MARLI LOWE. ROOM: 461 Age: 70 Sex: F Admission Date: 07/13/2016 : 1945 Attending Physician: Ezra Mckenzie M.D. Primary Care Physician: Jasper Andrew M.D. HISTORY AND PHYSICAL HISTORY OF PRESENT ILLNESS This is a 70-year-old white female who is known to Dr. Lo who has been treating her for hypertension and hyperlipidemia. She underwent a stress test in 2013 prior to knee surgery where there was no evidence of ischemia or infarction. Patient was admitted after EGD and colonoscopy for complaint of abdominal discomfort. She was found to have diverticulosis and hepatic flexure mass that was consistent with malignancy. She needs surgical repair, and Cardiology was consulted for evaluation. From a cardiac standpoint, the patient said she has had intermittent chest discomfort in the past but has not had it for quite some time. She is able to clean and vacuum her house without chest pain. She has some exertional dyspnea which she associates with asthma. She reports occasional lower extremity edema but no paroxysmal nocturnal dyspnea or orthopnea. PAST MEDICAL HISTORY 1. Lexiscan Cardiolite stress test on February 03, 2014, at [facility] which showed probable normal with no evidence of ischemia or infarction and ejection fraction of 61%. There was a moderate size, mild, fixed hypoperfusion in the anterior wall likely due to breast attenuation artifact. 2. Hypertension. 3. Hyperlipidemia. 4. Asthma. 5. Hiatal hernia. 6. Hypothyroidism. 7. Obesity. 8. Nonsmoker. 9. Obstructive sleep apnea, wears BiPAP. PAST SURGICAL HISTORY 1. Tonsillectomy. 2. Cholecystectomy. 3. Hysterectomy. 4. Left knee replacement. SOCIAL HISTORY The patient is . She has never smoked and denies illicit drug and alcohol use. FAMILY HISTORY Mother had congestive heart failure. She has a brother with stent placement. Unit #: [id number] #: [id number] Patient: MARLI LOWE ALLERGIES No known drug allergies. HOME MEDICATIONS 1. Breo Ellipta 1 inhalation daily. 2. ProAir HFA 1 inhalation p.r.n. 3. Primidone 100 mg at bedtime. 4. Singulair 10 mg daily. 5. Aspirin 81 mg daily. 6. "Octavite O.U." daily. 7. Furosemide 40 mg daily. 8. Potassium chloride 20 mEq daily. 9. Lipitor 40 mg at bedtime. 10. Zoloft 50 mg daily. 11. Irbesartan 300 mg daily. REVIEW OF SYSTEMS CONSTITUTIONAL: Negative for fever or chills. Has no weight gain or weight loss. HEENT: No headache, hearing or vision changes, or difficulty with swallowing. Negative for dizziness. CARDIOVASCULAR: Chest discomfort described in History of Present Illness. Denies palpitations. No paroxysmal nocturnal dyspnea or orthopnea. No syncope or presyncope. RESPIRATORY: Has dyspnea on exertion. Has occasional nonproductive cough. No hemoptysis. GASTROINTESTINAL: Reports abdominal discomfort. No nausea or vomiting. Denies hematochezia or melena. EXTREMITIES: Has occasional lower extremity edema. PHYSICAL EXAMINATION VITAL SIGNS: Blood pressure 147/57 and heart rate 60. GENERAL: This is a pleasant, 70-year-old, middle-aged white female who is in no acute respiratory distress. NEUROLOGIC: She is awake, alert, and oriented. There are no focal weaknesses. NECK: Trachea is midline. No thyromegaly or lymphadenopathy. No jugular venous distention. HEART: S1 and S2 heart sounds are normal. No murmurs, rubs, or clicks. Regular rate and rhythm. LUNGS: Diminished without rales, rhonchi, or wheezing. ABDOMEN: Soft with tenderness to palpation. No organomegaly. EXTREMITIES: Without leg edema. SKIN: Warm and dry. DIAGNOSTIC STUDIES LABORATORY: Glucose 98, BUN 6, creatinine 0.8, sodium 139, potassium 3.6, and magnesium 2. Cholesterol 137, triglycerides 119, LDL 66, and HDL 47. TSH 2.41. IMAGING: Chest x-ray shows mild cardiac enlargement with patchy and linear densities in the left lower lobe with partial obscuration of the left heart border suggesting inferior lingular segment location. May represent atelectasis or mild pneumonitis. CARDIOLOGY: EKG shows normal sinus rhythm, rate of 60 beats per minute, otherwise normal. Unit #: [id number] #: [id number] Patient: MARLI LOWE IMPRESSION 1. Hepatic flexure mass, questionable malignancy. 2. Hypertension. 3. Hyperlipidemia. 4. Normal Lexiscan Cardiolite stress test in 2013. 5. History of asthma. 6. Obesity. PLAN 1. Cardiology was consulted for preoperative evaluation. The patient has no current angina. There is no heart failure on examination. Blood pressure is normal with EKG within normal limits. 2. Will schedule the patient for Lexiscan Cardiolite stress test to rule out coronary artery disease. If normal, the patient is a low-risk candidate for hemicolectomy under general anesthesia. Thank you for allowing us to assist with this patient's care. Dictated by Familia Husain A.P.R.N. for Jodi Isidro/angelic TD: 07/14/2016 20:04 JOB #: [id number] HISTORY AND PHYSICAL Page 1 of 1 X Familia Husain APRN X HISTORY AND PHYSICAL
[~2016-07-13 10:52] MED LIST: ADVAIR 250-501 EACH IH; ALBUTEROL17 GM INH; ASPIR-TRIN325 MG PO; ASPIRIN EC81 M1 PO; BREO ELLIPTA 11 EACH INH; DORZOLAMIDE-TIM10 ML OU; FUROSEMIDE40 MG PO; Glucosamine PO; IRBESARTAN300 MG PO; K-DUR20 ME1 PO; LIPITOR PO; LIPITOR40 MG PO; MULTIVITAMIN PO; OCCUVITE OU; POTASSIUM CHLO20 ME1 PO; PRIMIDONE50 MG PO; PROAIR HFA8.5 GM INH; SERTRALINE HCL50 M1 PO; SINGULAIR PO
[2016-07-13 17:03] LABS: BASOPHIL% 0.8 % (0-2.5); EOSINOPHIL# 0.1 X10e3 (0-0.7); EOSINOPHIL% 2.2 % (0.0-7.0); HEMATOCRIT 29.8 % (35.0-45.0); LYMPHOCYTE# 1.3 X10e3 (1.0-3.5); LYMPHOCYTE% 22.3 % (17.0-45.0); MEAN CELL VOLUME 68.3 FL (83-96); MEAN CORPUSCULAR HEMOGLOBIN 20.7 PG (28-34); MEAN CORPUSCULAR HGB CONC 30.3 g/dL (30-36); MEAN PLATELET VOLUME 8.4 FL (6.5-11.5); MONOCYTE# 0.6 X10e3 (0-1.0); MONOCYTE% 10.6 % (3.0-12.0); NEUTROPHIL# 3.7 X10e3 (1.5-7.1); NEUTROPHIL% 64.1 % (40-75); PLATELET COUNT 293 X10e3 (140-420); RED BLOOD COUNT 4.36 X10e (3.90-5.30); RED CELL DISTRIBUTION WIDTH 17.3 % (11.0-15.5); WHITE BLOOD COUNT 5.8 X10e3 (4.0-10.5)
[2016-07-13 17:08] LABS: DIFF IND NO
[2016-07-13 17:37] LABS: BILIRUBIN,TOTAL 0.5 mg/dL (0.2-2.0); BUN/CREATININE RATIO 12.85; CALCIUM SERUM 9.3 mg/dL (8.4-10.2); CREATININE SERUM 0.7 mg/dL (0.6-1.4); GLOM FILT RATE Estimated 86.6 mL/min (>60); MAGNESIUM 2.1 mg/dL (1.6-3.0); PHOSPHOROUS 4.2 mg/dL (2.5-4.6); PREALBUMIN 17.7 mg/dL (17.0-42.0); PROTEIN TOTAL SERUM 7.2 g/dL (6.0-8.3)
[2016-07-13 19:14] LABS: CHOLESTEROL 137 mg/dL (0-200); HDL CHOLESTEROL 47 mg/dL (35-95); LDL CHOLESTEROL 66 mg/dL (-130); LDL/HDL RATIO 1 RATIO (0-4); TRIGLYCERIDES 119 mg/dL (10-160)
[2016-07-14 11:47] LABS: BASOPHIL% 0.8 % (0-2.5); EOSINOPHIL# 0.1 X10e3 (0-0.7); EOSINOPHIL% 2.2 % (0.0-7.0); HEMATOCRIT 28.6 % (35.0-45.0); HEMOGLOBIN 8.6 gm/dL (12.0-16.0); LYMPHOCYTE# 1.3 X10e3 (1.0-3.5); LYMPHOCYTE% 24.8 % (17.0-45.0); MEAN CELL VOLUME 69.1 FL (83-96); MEAN CORPUSCULAR HEMOGLOBIN 20.9 PG (28-34); MEAN CORPUSCULAR HGB CONC 30.2 g/dL (30-36); MEAN PLATELET VOLUME 8.5 FL (6.5-11.5); MONOCYTE# 0.6 X10e3 (0-1.0); MONOCYTE% 11.9 % (3.0-12.0); NEUTROPHIL# 3.2 X10e3 (1.5-7.1); NEUTROPHIL% 60.3 % (40-75); PLATELET COUNT 277 X10e3 (140-420); RED BLOOD COUNT 4.14 X10e (3.90-5.30); RED CELL DISTRIBUTION WIDTH 17.6 % (11.0-15.5); WHITE BLOOD COUNT 5.3 X10e3 (4.0-10.5)
[2016-07-14 11:53] LABS: DIFF IND NO
[2016-07-14 12:13] LABS: BUN/CREATININE RATIO 7.5; CALCIUM SERUM 8.7 mg/dL (8.4-10.2); CREATININE SERUM 0.8 mg/dL (0.6-1.4); GLOM FILT RATE Estimated 73.7 mL/min (>60); POTASSIUM 3.6 mmol/L (3.5-5.1)
[2016-07-15 07:44] LABS: BASOPHIL% 0.9 % (0-2.5); EOSINOPHIL# 0.2 X10e3 (0-0.7); EOSINOPHIL% 3.9 % (0.0-7.0); HEMATOCRIT 29.3 % (35.0-45.0); HEMOGLOBIN 8.9 gm/dL (12.0-16.0); LYMPHOCYTE# 1.6 X10e3 (1.0-3.5); LYMPHOCYTE% 32.9 % (17.0-45.0); MEAN CELL VOLUME 68.8 FL (83-96); MEAN CORPUSCULAR HEMOGLOBIN 20.8 PG (28-34); MEAN CORPUSCULAR HGB CONC 30.2 g/dL (30-36); MEAN PLATELET VOLUME 8.3 FL (6.5-11.5); MONOCYTE# 0.7 X10e3 (0-1.0); MONOCYTE% 13.7 % (3.0-12.0); NEUTROPHIL# 2.4 X10e3 (1.5-7.1); NEUTROPHIL% 48.6 % (40-75); PLATELET COUNT 263 X10e3 (140-420); RED BLOOD COUNT 4.26 X10e (3.90-5.30); RED CELL DISTRIBUTION WIDTH 17.4 % (11.0-15.5); WHITE BLOOD COUNT 4.8 X10e3 (4.0-10.5)
[2016-07-15 07:48] LABS: DIFF IND NO
[2016-07-15 08:29] LABS: BUN/CREATININE RATIO 7.77; CALCIUM SERUM 8.9 mg/dL (8.4-10.2); CREATININE SERUM 0.9 mg/dL (0.6-1.4); GLOM FILT RATE Estimated 63.9 mL/min (>60); POTASSIUM 3.5 mmol/L (3.5-5.1)
[2016-07-16 03:28] LABS: BASOPHIL# 0.1 X10e3 (0-0.3); BASOPHIL% 0.4 % (0-2.5); HEMATOCRIT 26.8 % (35.0-45.0); HEMOGLOBIN 7.9 gm/dL (12.0-16.0); MEAN CELL VOLUME 69.3 FL (83-96); MEAN CORPUSCULAR HEMOGLOBIN 20.5 PG (28-34); MEAN CORPUSCULAR HGB CONC 29.6 g/dL (30-36); MEAN PLATELET VOLUME 8.6 FL (6.5-11.5); MONOCYTE# 1.4 X10e3 (0-1.0); MONOCYTE% 8.1 % (3.0-12.0); NEUTROPHIL# 14.6 X10e3 (1.5-7.1); NEUTROPHIL% 85.5 % (40-75); PLATELET COUNT 273 X10e3 (140-420); RED BLOOD COUNT 3.86 X10e (3.90-5.30)
[2016-07-16 03:29] LABS: DIFF IND YES; WHITE BLOOD COUNT 17.1 X10e3 (4.0-10.5)
[2016-07-16 03:57] LABS: BUN/CREATININE RATIO 11.25; CALCIUM SERUM 8.5 mg/dL (8.4-10.2); CREATININE SERUM 0.8 mg/dL (0.6-1.4); GLOM FILT RATE Estimated 73.7 mL/min (>60); MAGNESIUM 1.9 mg/dL (1.6-3.0); POTASSIUM 4.1 mmol/L (3.5-5.1)
[2016-07-16 04:07] LABS: ANISOCYTOSIS MOD; HYPOCHROMIA MOD; PLATELET ESTIMATE NORMAL (NORMAL)
[2016-07-16 04:08] LABS: POIKILOCYTOSIS SL; VACUOLIZATION P
[2016-07-17 01:27] LABS: URINE APPEARANCE TURBID; URINE BLOOD 2+ (NEG); URINE COLOR ORANGE; URINE GLUCOSE NEG (NEG); URINE KETONE TRACE (NEG); URINE LEUKOCYTE ESTERASE 1+ (NEG); URINE NITRATE POS (NEG); URINE PH 5.5 (5-8); URINE PROTEIN 2+ (NEG); URINE SPECIFIC GRAVITY 1.031 (1.003-1.035)
[2016-07-17 01:29] LABS: CULTURE INDICATED? YES; URINE BACTERIA AUWI NEG (NEGATIVE); URINE SQUAMOUS EPITHELIAL CELL MOD /[HPF]
[2016-07-17 01:45] LABS: URINE BILIRUBIN POS (NEG)
[2016-07-17 01:46] LABS: URINE CRYSTALS CALCIUM OXALATE /[HPF]
[2016-07-17 03:33] LABS: HEMATOCRIT 26.5 % (35.0-45.0); HEMOGLOBIN 7.9 gm/dL (12.0-16.0); MEAN CELL VOLUME 68.8 FL (83-96); MEAN CORPUSCULAR HEMOGLOBIN 20.4 PG (28-34); MEAN CORPUSCULAR HGB CONC 29.6 g/dL (30-36); MEAN PLATELET VOLUME 8.3 FL (6.5-11.5); RED BLOOD COUNT 3.86 X10e (3.90-5.30); RED CELL DISTRIBUTION WIDTH 18.1 % (11.0-15.5); WHITE BLOOD COUNT 15.7 X10e3 (4.0-10.5)
[2016-07-17 04:06] LABS: BUN/CREATININE RATIO 12.22; CALCIUM SERUM 8.4 mg/dL (8.4-10.2); CREATININE SERUM 0.9 mg/dL (0.6-1.4); GLOM FILT RATE Estimated 63.9 mL/min (>60); POTASSIUM 3.8 mmol/L (3.5-5.1)
[2016-07-18 03:44] LABS: HEMATOCRIT 30.2 % (35.0-45.0); HEMOGLOBIN 9.1 gm/dL (12.0-16.0); MEAN CORPUSCULAR HEMOGLOBIN 20.8 PG (28-34); MEAN CORPUSCULAR HGB CONC 30.1 g/dL (30-36); MEAN PLATELET VOLUME 8.6 FL (6.5-11.5); RED BLOOD COUNT 4.38 X10e (3.90-5.30); RED CELL DISTRIBUTION WIDTH 17.8 % (11.0-15.5); WHITE BLOOD COUNT 14.3 X10e3 (4.0-10.5)
[2016-07-18 04:00] LABS: CALCIUM SERUM 8.3 mg/dL (8.4-10.2); CREATININE SERUM 0.7 mg/dL (0.6-1.4); GLOM FILT RATE Estimated 86.6 mL/min (>60); POTASSIUM 3.5 mmol/L (3.5-5.1)
[2016-07-19 04:01] LABS: HEMATOCRIT 25.6 % (35.0-45.0); HEMOGLOBIN 7.6 gm/dL (12.0-16.0); MEAN CELL VOLUME 67.6 FL (83-96); MEAN CORPUSCULAR HEMOGLOBIN 20.1 PG (28-34); MEAN CORPUSCULAR HGB CONC 29.8 g/dL (30-36); MEAN PLATELET VOLUME 8.4 FL (6.5-11.5); RED BLOOD COUNT 3.79 X10e (3.90-5.30); WHITE BLOOD COUNT 12.6 X10e3 (4.0-10.5)
[2016-07-19 04:19] LABS: BUN/CREATININE RATIO 8.18; CALCIUM SERUM 8.1 mg/dL (8.4-10.2); CREATININE SERUM 1.1 mg/dL (0.6-1.4); GLOM FILT RATE Estimated 50.1 mL/min (>60); POTASSIUM 3.6 mmol/L (3.5-5.1)
[2016-07-20 02:59] LABS: BASOPHIL# 0.1 X10e3 (0-0.3); BASOPHIL% 0.5 % (0-2.5); DIFF IND YES; EOSINOPHIL# 0.4 X10e3 (0-0.7); EOSINOPHIL% 2.4 % (0.0-7.0); HEMOGLOBIN 8.3 gm/dL (12.0-16.0); LYMPHOCYTE# 1.5 X10e3 (1.0-3.5); LYMPHOCYTE% 9.8 % (17.0-45.0); MEAN CELL VOLUME 68.4 FL (83-96); MEAN CORPUSCULAR HEMOGLOBIN 20.3 PG (28-34); MEAN CORPUSCULAR HGB CONC 29.8 g/dL (30-36); MONOCYTE# 2.3 X10e3 (0-1.0); NEUTROPHIL# 11.2 X10e3 (1.5-7.1); NEUTROPHIL% 72.3 % (40-75); PLATELET COUNT 290 X10e3 (140-420); RED CELL DISTRIBUTION WIDTH 18.1 % (11.0-15.5); WHITE BLOOD COUNT 15.5 X10e3 (4.0-10.5)
[2016-07-20 03:01] LABS: ANISOCYTOSIS MOD; PLATELET ESTIMATE NORMAL (NORMAL)
[2016-07-20 03:02] LABS: HYPOCHROMIA SL
[2016-07-21 02:37] LABS: HEMATOCRIT 24.3 % (35.0-45.0); HEMOGLOBIN 7.2 gm/dL (12.0-16.0); MEAN CELL VOLUME 68.1 FL (83-96); MEAN CORPUSCULAR HEMOGLOBIN 20.3 PG (28-34); MEAN CORPUSCULAR HGB CONC 29.9 g/dL (30-36); MEAN PLATELET VOLUME 8.2 FL (6.5-11.5); RED BLOOD COUNT 3.56 X10e (3.90-5.30); RED CELL DISTRIBUTION WIDTH 18.1 % (11.0-15.5); WHITE BLOOD COUNT 14.8 X10e3 (4.0-10.5)
[2016-07-21 03:12] LABS: BUN/CREATININE RATIO 11.5; CALCIUM SERUM 8.4 mg/dL (8.4-10.2); GLOM FILT RATE Estimated 24.3 mL/min (>60); MAGNESIUM 1.7 mg/dL (1.6-3.0)
[2016-07-22 03:28] LABS: HEMATOCRIT 24.6 % (35.0-45.0); HEMOGLOBIN 7.4 gm/dL (12.0-16.0); MEAN CORPUSCULAR HEMOGLOBIN 20.5 PG (28-34); MEAN CORPUSCULAR HGB CONC 30.2 g/dL (30-36); MEAN PLATELET VOLUME 8.4 FL (6.5-11.5); RED BLOOD COUNT 3.62 X10e (3.90-5.30); RED CELL DISTRIBUTION WIDTH 17.8 % (11.0-15.5); WHITE BLOOD COUNT 16.9 X10e3 (4.0-10.5)
[2016-07-22 04:12] LABS: BUN/CREATININE RATIO 21.53; CALCIUM SERUM 8.2 mg/dL (8.4-10.2); CREATININE SERUM 1.3 mg/dL (0.6-1.4); POTASSIUM 4.3 mmol/L (3.5-5.1)
[2016-07-22 10:04] LABS: URINE APPEARANCE CLOUDY; URINE BLOOD NEG (NEG); URINE COLOR DK YELLOW; URINE GLUCOSE NEG (NEG); URINE KETONE TRACE (NEG); URINE LEUKOCYTE ESTERASE 1+ (NEG); URINE NITRATE NEG (NEG); URINE PH 5.5 (5-8); URINE PROTEIN 1+ (NEG); URINE SPECIFIC GRAVITY 1.025 (1.003-1.035)
[2016-07-22 10:05] LABS: URINE BACTERIA AUWI NEG (NEGATIVE); URINE SQUAMOUS EPITHELIAL CELL OCC /[HPF]
[2016-07-22 10:22] LABS: URINE BILIRUBIN NEG (NEG)
[2016-07-22 10:24] LABS: URINE GRANULAR CAST 0-2 /[HPF]
[2016-07-22 10:25] LABS: CULTURE INDICATED? NO; URBCS1 AUWI NEG /[HPF] (0-2); URINE MUCUS PRESENT
[2016-07-22 17:39] LABS: CREATININE,RANDOM URINE 353 mg/dL
[2016-07-22 17:40] LABS: SODIUM URINE RANDOM <10 mmol/L
[2016-07-23 03:37] LABS: HEMOGLOBIN 7.1 gm/dL (12.0-16.0); MEAN CELL VOLUME 66.1 FL (83-96); MEAN CORPUSCULAR HEMOGLOBIN 20.4 PG (28-34); MEAN CORPUSCULAR HGB CONC 30.8 g/dL (30-36); MEAN PLATELET VOLUME 7.9 FL (6.5-11.5); RED BLOOD COUNT 3.48 X10e (3.90-5.30); RED CELL DISTRIBUTION WIDTH 18.1 % (11.0-15.5); WHITE BLOOD COUNT 12.5 X10e3 (4.0-10.5)
[2016-07-23 04:03] LABS: BUN/CREATININE RATIO 23.75; CALCIUM SERUM 8.1 mg/dL (8.4-10.2); CREATININE SERUM 0.8 mg/dL (0.6-1.4); GLOM FILT RATE Estimated 73.7 mL/min (>60); MAGNESIUM 1.8 mg/dL (1.6-3.0); PHOSPHOROUS 3.9 mg/dL (2.5-4.6); POTASSIUM 3.7 mmol/L (3.5-5.1)
[2016-07-24 04:01] LABS: BASOPHIL# 0.1 X10e3 (0-0.3); BASOPHIL% 0.5 % (0-2.5); EOSINOPHIL# 0.6 X10e3 (0-0.7); EOSINOPHIL% 5.2 % (0.0-7.0); HEMATOCRIT 24.1 % (35.0-45.0); HEMOGLOBIN 7.5 gm/dL (12.0-16.0); LYMPHOCYTE# 1.4 X10e3 (1.0-3.5); MEAN CELL VOLUME 65.9 FL (83-96); MEAN CORPUSCULAR HEMOGLOBIN 20.4 PG (28-34); MEAN CORPUSCULAR HGB CONC 30.9 g/dL (30-36); MEAN PLATELET VOLUME 7.5 FL (6.5-11.5); MONOCYTE# 1.7 X10e3 (0-1.0); MONOCYTE% 15.2 % (3.0-12.0); NEUTROPHIL# 7.2 X10e3 (1.5-7.1); NEUTROPHIL% 66.1 % (40-75); PLATELET COUNT 397 X10e3 (140-420); RED BLOOD COUNT 3.66 X10e (3.90-5.30); RED CELL DISTRIBUTION WIDTH 18.4 % (11.0-15.5); WHITE BLOOD COUNT 10.9 X10e3 (4.0-10.5)
[2016-07-24 04:02] LABS: DIFF IND YES
[2016-07-24 04:24] LABS: PLATELET ESTIMATE NORMAL (NORMAL)
[2016-07-24 04:25] LABS: ANISOCYTOSIS SL; HYPOCHROMIA SL; MICROCYTOSIS MOD; OVALOCYTES PRESENT
== END 2016-07-26 12:00 | DRG 330 ==
LOC: COPS 10:52 → CPACUOF 14:55 → C4C 14:55 → COPS 15:25 → CPACUOF 15:25 → C4C 15:25 → CPACUOF 07-14 08:26 → C4C 07-26 12:00
PROVIDERS: Internal Medicine Nephrology; Specialist; Surgery
PROC: 0DBK8ZX Excision of Ascending Colon, Via Natural or Artificial Opening Endoscopic, Diagnostic (ICD-10-PCS; 2016-07-13 13:00)
PROC: 0DJ08ZZ Inspection of Upper Intestinal Tract, Via Natural or Artificial Opening Endoscopic (ICD-10-PCS; 2016-07-13 13:00)
PROC: B24BZZZ Ultrasonography of Heart with Aorta (ICD-10-PCS; 2016-07-14)
PROC: 0DTF0ZZ Resection of Right Large Intestine, Open Approach (ICD-10-PCS; principal; 2016-07-15 10:00)
DX: C18.3 Malignant neoplasm of hepatic flexure (principal); N17.9 Acute kidney failure, unspecified; E87.2 Acidosis; I95.9 Hypotension, unspecified; K56.7 Ileus, unspecified; E87.1 Hypo-osmolality and hyponatremia; T81.4XXA Infection following a procedure, initial encounter; T81.31XA Disruption of external operation (surgical) wound, not elsewhere classified, initial encounter; E86.0 Dehydration; K57.30 Diverticulosis of large intestine without perforation or abscess without bleeding; G47.33 Obstructive sleep apnea (adult) (pediatric); J45.909 Unspecified asthma, uncomplicated; I25.10 Atherosclerotic heart disease of native coronary artery without angina pectoris; Y83.8 Other surgical procedures as the cause of abnormal reaction of the patient, or of later complication, without mention of misadventure at the time of the procedure; I10 Essential (primary) hypertension; E78.5 Hyperlipidemia, unspecified; E03.9 Hypothyroidism, unspecified; D50.9 Iron deficiency anemia, unspecified; Z87.891 Personal history of nicotine dependence; Z79.82 Long term (current) use of aspirin; Z90.49 Acquired absence of other specified parts of digestive tract; Z90.710 Acquired absence of both cervix and uterus; Z96.652 Presence of left artificial knee joint; Z80.0 Family history of malignant neoplasm of digestive organs; Z82.49 Family history of ischemic heart disease and other diseases of the circulatory system; E66.9 Obesity, unspecified; Z68.34 Body mass index [BMI] 34.0-34.9, adult
CPT/HCPCS: 71020; 74177; 78452; 80048; 80053; 80061; 81003; 82378; 82570; 82728; 83540; 83550; 83735; 84100; 84134; 84300; 84443; 85025; 85027; 86850; 86900; 86901; 87086; 87493; 88305; 88309; 88341; 88342; 93005; 93017; 93306; 94010; 94640; 94664; 94760; 97110; 97116; 97162; 97530; A9500; C9113; G8978-GP; G8979-GP; G8980-GP; J0330; J1250; J1650; J1885; J1940; J1956; J2250; J2270; J2405; J2710; J2765; J3010; Q9967